=== PATIENT | male | born 1975 | race Caucasian/White ===

== ENCOUNTER 2023-06-05 17:19 | Emergency (ER) | payer OTHER ==
--- NOTE | 2023-06-05 18:49 | RAD REPORT ---
EXAM DESCRIPTION: RAD - Tib Fib Right - 06/05/2023 6:24 pm CLINICAL HISTORY: SWELLING COMPARISON: No comparisons FINDINGS/IMPRESSION: No acute fracture. No malalignment. No significant focal degenerative changes.
--- NOTE | 2023-06-05 19:01 | ER ---
Nurse's Notes [facility] Name: Alejandro Brown Age: 47 yrs Sex: Male : 1975 Arrival Date: 06/05/2023 Time: 17:19 Bed 14 Private MD: Diagnosis: Local infection of the skin and subcutaneous tissue, unspecified-right posterior lower leg Presentation: 06/05 17:46 Chief complaint: Patient states: has an open abrasion type wound on back of right iw ankle/rosenberg for a long time, they think it's is circulation problem, i was scratching and the skin came off today. Coronavirus screen: At this time, the client does not indicate any symptoms associated with coronavirus-19. Ebola Screen: Patient negative for fever greater than or equal to 101.5 degrees Fahrenheit, and additional compatible Ebola Virus Disease symptoms Patient denies exposure to infectious person. Patient denies travel to an Ebola-affected area in the 21 days before illness onset. No symptoms or risks identified at this time. Initial Sepsis Screen: Does the patient meet any 2 criteria? No. Patient's initial sepsis screen is negative. Does the patient have a suspected source of infection? No. Patient's initial sepsis screen is negative. Risk Assessment: Do you want to hurt yourself or someone else? Patient reports no desire to harm self or others. Onset of symptoms was June 05, 2023. 17:46 Method Of Arrival: Ambulatory iw 17:46 Acuity: JASMYN 4 iw Historical: - Allergies: 17:47 Drrtlsc-HFG-LvE Reductase Inhibitors; iw - PMHx: 17:47 Tourette's Syndrome; iw - Immunization history:: Adult Immunizations. - Social history:: Smoking status: . Screenin:15 [facility] ED Fall Risk Assessment (Adult) History of falling in the last 3 months, me1 including since admission No falls in past 3 months (0 pts) Confusion or Disorientation No (0 pts) Intoxicated or Sedated No (0 pts) Impaired Gait No (0 pts) Mobility Assist Device Used No (0 pt) Altered Elimination No (0 pt) Score/Fall Risk Level 0 - 2 = Low Risk. Abuse screen: Denies threats or abuse. Nutritional screening: No deficits noted. Tuberculosis screening: No symptoms or risk factors identified. Assessment: 18:15 General: Appears comfortable, Behavior is calm, cooperative, appropriate for age, me1 Reports having a dry scaly rash to BLE on anterior and posterior side of legs. Scratching posterior right leg today and the skin came off. where the rash had been. Denies fever, feeling ill, fatigue, chills. Pain: Complains of pain in right calf Pain does not radiate. Pain currently is 4 out of 10 on a pain scale. Quality of pain is described as burning, stinging, Pain began suddenly, Is continuous. Neuro: Level of Consciousness is awake, alert, obeys commands, Oriented to person, place, time, situation, Appropriate for age. Cardiovascular: Capillary refill < 3 seconds Patient's skin is warm and dry. Respiratory: Airway is patent Respiratory effort is even, unlabored, Respiratory pattern is regular, symmetrical. Derm: Rash noted that is red, raised, scaly areas noted to anterior and posterior aspect of BLE. Vital Signs: 17:46 BP 117 / 73; Pulse 83; Resp 16; Temp 98.1; Pulse Ox 95% on R/A; iw 18:15 BP 114 / 71; Pulse 80; Resp 16; Pulse Ox 93% on R/A; Pain 4/10; me1 19:12 BP 102 / 55; Pulse 82; Resp 16; Pulse Ox 93% on R/A; me1 18:15 Pain Scale: Adult mo1 ED Course: 17:22 Patient arrived in ED. im 17:33 Juan Jose Galaviz PA is PHCP. cp 17:33 Jeffrey Mcguire MD is Attending Physician. cp 17:47 Triage completed. iw 17:48 Arm band placed on. iw 18:03 Susanna Iniguez, NUSRAT is Primary Nurse. me1 18:15 Patient has correct armband on for positive identification. Bed in low position. Call mo1 light in reach. Side rails up X 1. Provided Education on: POC. Verbalized understanding.. 18:15 No provider procedures requiring assistance completed. Patient did not have IV access [facility] during this emergency room visit. 18:26 XRAY Tib Fib RIGHT In Process Unspecified. EDMS Administered Medications: No medications were administered Medication: 18:15 VIS not applicable for this client. me1 Outcome: 19:01 Discharge ordered by . cp 19:24 Discharged to home ambulatory. me1 19:24 Condition: stable 19:24 Discharge instructions given to patient, family, Instructed on discharge instructions, follow up and referral plans. medication usage, Demonstrated understanding of instructions, follow-up care, medications, Prescriptions given X 2. 19:25 Patient left the ED. me1 Signatures: Dispatcher [employer] Kayla Maciel, RN RN Juan Jose Galaviz PA PA cp Mendoza, Itzel im Eddleman, Michelle, RN RN me1
--- NOTE | 2023-06-05 19:01 | EDPHYS ---
Physician Documentation [facility] Name: Alejandro Brown Age: 47 yrs Sex: Male : 1975 Arrival Date: 06/05/2023 Time: 17:19 Bed 14 Private MD: ED Physician Jeffrey Mcguire HPI: 06/05 17:58 This 47 yrs old Male presents to ER via Ambulatory with complaints of Skin Problem - cp both legs. 17:58 The patient presents with a rash, erythematous. The complaints affect the posterior cp aspect of right lower leg. Context: resulted from an unknown cause. Onset: The symptoms/episode began/occurred for years. 17:58 Associated signs and symptoms: The patient has no apparent associated signs or symptoms.cp Historical: - Allergies: 17:47 Zyoruyj-GPC-ZlG Reductase Inhibitors; iw - PMHx: 17:47 Tourette's Syndrome; iw - Immunization history:: Adult Immunizations. - Social history:: Smoking status: . ROS: 18:05 Constitutional: Negative for body aches, chills, fever, poor PO intake. cp 18:05 Skin: Positive for rash, of the right leg and left leg. 18:05 All other systems are negative. Exam: 18:10 Constitutional: The patient appears in no acute distress, alert, awake, non-toxic, well cp developed, well nourished, overweight 18:10 Head/Face: Normocephalic, atraumatic. cp 18:10 Cardiovascular: Rate: normal. 18:10 Respiratory: the patient does not display signs of respiratory distress, Respirations: normal, no use of accessory muscles, no retractions, labored breathing, is not present. 18:10 Skin: large area of erythema with dermal layer removed, mild serosanguinous drainage noted to posterior lower right leg. general exam of skin lower extremities shows areas of dermal thickening with excoriation, mild erythema. Vital Signs: 17:46 BP 117 / 73; Pulse 83; Resp 16; Temp 98.1; Pulse Ox 95% on R/A; iw 18:15 BP 114 / 71; Pulse 80; Resp 16; Pulse Ox 93% on R/A; Pain 4/10; me1 19:12 BP 102 / 55; Pulse 82; Resp 16; Pulse Ox 93% on R/A; me1 18:15 Pain Scale: Adult me1 MDM: 18:04 Patient medically screened. cp 18:30 Differential diagnosis: cellulitis, abscess, eczema. cp 19:00 Data reviewed: vital signs, nurses notes, radiologic studies, plain films. cp 19:00 Independent interpretation of the following test(s) in the Emergency Department X-Ray: cp My interpretation is images of right lower leg negative for fracture. Counseling: I had a detailed discussion with the patient and/or guardian regarding the historical points, exam findings, and any diagnostic results supporting the discharge/admit diagnosis, radiology results, the need for outpatient follow up, a aircraft dispatcher, to return to the emergency department if symptoms worsen or persist or if there are any questions or concerns that arise at home. 06/05 17:55 Order name: XRAY Tib Fib RIGHT; Complete Time: 18:50 cp 06/05 18:50 Interpretation: Report reviewed. cp 06/05 17:55 Order name: Wound dressing; Complete Time: 19:12 cp Administered Medications: No medications were administered Disposition Summary: 06/05/23 19:01 Discharge Ordered Location: Home cp Problem: new cp Symptoms: have improved cp Condition: Stable cp Diagnosis - Local infection of the skin and subcutaneous tissue, unspecified - right posterior cp lower leg Followup: cp - With: Private Physician - When: 2 - 3 days - Reason: Recheck today's complaints Discharge Instructions: - Discharge Summary Sheet cp - Cellulitis, Adult cp Forms: - Medication Reconciliation Form cp - Thank You Letter cp - Antibiotic Education cp - Prescription Opioid Use cp - Patient Portal Instructions cp - Leadership Thank You Letter cp Prescriptions: - mupirocin 2 % Topical ointment - apply 1 application by TOPICAL route 3 times per day for 8-10 days; 30 gram; cp Refills: 0, Product Selection Permitted - Cephalexin 500 mg Oral Capsule - take 1 capsule by ORAL route every 8 hours for 10 days; 30 capsule; Refills: 0, cp Product Selection Permitted Signatures: Dispatcher [employer] Kayla Maciel RN RN iw Page, Corey, PA PA cp Corrections: (The following items were deleted from the chart) 06/06 16:35 16:34 Skin: Positive for rash, of the right leg and left leg, cp cp 16:35 16:34 Constitutional: Negative for body aches, chills, fever, poor PO intake, cp cp 16:35 16:34 All other systems are negative, cp cp
[2023-06-05 19:31] VITALS: TEMP 98.1
[2023-06-05 19:32] VITALS: O2SAT 93
[2023-06-05 19:33] VITALS: BP 102/55
== END 2023-06-05 19:25 | disposition home or self-care (01) ==
LOC: ER 17:19
DX: L08.9 Local infection of the skin and subcutaneous tissue, unspecified (principal); Z88.8 Allergy status to other drugs, medicaments and biological substances
CPT/HCPCS: 99283